=== PATIENT | female | born 1970 | race African-American/Black ===

== ENCOUNTER 2022-08-09 16:59 | Emergency (ER) | payer OTHER ==
[~2022-08-09] VITALS: Ht 157.5 cm; Wt 100.0 kg
[2022-08-09] VITALS (15 sets, daily range): BP systolic 110–162; BP diastolic 63–95
[2022-08-09 17:50] LABS: HEMATOCRIT 38.2 % (37.0-47.0); HEMOGLOBIN 12.7 g/dl (12.0-16.0); IMMATURE GRANULOCYTES 0.9 % (0.0-5.0); MEAN CELL VOLUME 94.3 fL CALC (80.0-100.0); MEAN CORPUSCULAR HGB 31.4 pG CALC (26.0-32.0); MEAN CORPUSCULAR HGB CONC 33.2 g/dL CAL (32.0-36.0); NEUT# 9.74 thou/uL (2.00-7.15); RED BLOOD COUNT 4.05 mill/uL (4.20-5.60); RED CELL DISTRI WIDTH 13.9 % (11.5-15.5)
[2022-08-09 18:11] LABS: ALBUMIN 3.9 g/dL (3.2-5.0); ALKALINE PHOSPHATASE 102 u/l (38-126); ANION GAP 13 (6-22 (CALC)); BILIRUBIN, TOTAL 0.3 mg/dL (0.0-1.4); BUN 11 mg/dL (7-17); BUN/CREATININE RATIO 10 (12-20 (CALC)); CARBON DIOXIDE 25 mmol/l (22-30); CHLORIDE 108 mmol/l (95-108); GFR FOR AFR.AMER. > 60 ML/MIN (>=60 (CALC)); GFR OTHER RACES 58 ML/MIN (>=60 (CALC)); LIPASE 66 u/l (23-300); POTASSIUM 3.9 mmol/l (3.5-5.1); SGOT/AST 69 u/l (14-36); SODIUM 142 mmol/l (137-146); TOTAL PROTEIN 6.9 g/dL (6.3-8.2)
[2022-08-09 20:47] LABS: URINE BILIRUBIN - DIPSTICK NEGATIVE (NEGATIVE); URINE BLOOD DIPSTICK TRACE-INTACT (NEGATIVE); URINE COLOR YELLOW; URINE GLUCOSE - DIPSTICK NEGATIVE (NEGATIVE); URINE KETONE NEGATIVE (NEGATIVE); URINE LEUK ESTERASE NEGATIVE (NEGATIVE); URINE PROTEIN - DIPSTICK NEGATIVE (NEG-TRACE); URINE SPECIFIC GRAVITY 1.015; URINE UROBILINOGEN - DIPSTICK 0.2 E.U./dL (0.2)
[2022-08-09 20:49] LABS: URINE NITRITE - DIPSTICK NEGATIVE (Negative)
[2022-08-10 00:30] VITALS: BP 102/64
[2022-08-10 01:00] VITALS: BP 102/70
[2022-08-10 01:30] VITALS: BP 102/71
[2022-08-10 02:00] VITALS: BP 90/47
[2022-08-10 02:49] VITALS: BP 90/47
== END 2022-08-10 02:51 | DRG 563 ==
LOC: ED 16:59
PROVIDERS: Family Medicine
PROC: 2W3LX1Z Immobilization of Right Lower Extremity using Splint (ICD-10-PCS; principal; 2022-08-09)
DX: S82.891A Other fracture of right lower leg, initial encounter for closed fracture (principal); V49.50XA Passenger injured in collision with unspecified motor vehicles in traffic accident, initial encounter; I10 Essential (primary) hypertension
CPT/HCPCS: Q9967